=== PATIENT | female | born 2000 | race American Indian/Alaskan Native ===

== ENCOUNTER 2022-03-19 22:57 | Emergency (ER) | payer SELFPAY | END 2022-03-20 18:57 | disposition left against medical advice (07) | LOC: ED 22:57 | DX: O21.9 Vomiting of pregnancy, unspecified (principal); Z53.21 Procedure and treatment not carried out due to patient leaving prior to being seen by health care provider; Z3A.01 Less than 8 weeks gestation of pregnancy ==